=== PATIENT | male | born 1960 | race Caucasian/White ===

== ENCOUNTER 2018-11-30 08:42 | Emergency (ER) | payer MEDICARE, OTHER ==
--- NOTE | 2018-11-30 09:07 | EDM.PDOC ---
ED HPI GENERAL MEDICAL PROBLEM - General Chief Complaint: Diabetic Complaint Stated Complaint: DIABETIC,NEED INSULIN Time Seen by Provider: 11/30/18 09:05 Source of Information: Reports: Patient History Limitations: Reports: No Limitations - History of Present Illness INITIAL COMMENTS - FREE TEXT/NARRATIVE: 58-year-old male whom is from [place] is traveling and he forgot his insulin dosage or insulin-dependent home. he is on Soliliqua --insulin-dependent 3 units once daily. Essentially comes to the ED seeking medication. Patient has underlying bipolar affective disorder. He is controlled with ziprasidone 80 mg twice a day. Patient has metabolic syndrome with elevated cholesterol and hypertension and development of diabetes since 2013. Onset: Other (Has been diabetic since 2013. The use of the insulin glargine pen is normal for him.) Duration: Chronic Quality: Reports: Other Severity: Moderate (Forgot his insulin at home.) Improves with: Reports: None Worsens with: Reports: None Context: Reports: Other. 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 (see below) (None.) - Related Data Allergies Allergy/AdvReac Type Severity Reaction Status Date / Time No Known Allergies Allergy Verified 11/30/18 09:04 Home Meds: Home Meds Empagliflozin [Jardiance] 10 mg PO DAILY 11/30/18 [History] Insulin Glargine/Lixisenatide [Soliqua 100 Unit-33 Mcg/ml Pen] 3 ml SQ DAILY [History] Insulin Glargine/Lixisenatide [Soliqua 100 Unit-33 Mcg/ml Pen] 3 units SQ DAILY #1 insuln.pen 11/30/18 [Rx] Lisinopril [Prinivil] 10 mg PO DAILY 11/30/18 [History] OXcarbazepine [Trileptal] 150 mg PO BID 11/30/18 [History] Ziprasidone HCl 80 mg PO BID 11/30/18 [History] amLODIPine [Norvasc] 5 mg PO DAILY 11/30/18 [History] atorvaSTATin [Lipitor] 10 mg PO DAILY 11/30/18 [History] cloNIDine [Catapres] 0.1 mg PO DAILY 11/30/18 [History] metFORMIN [Glucophage XR] 1,000 mg PO BIDMEALS 11/30/18 [History] Past Medical History Cardiovascular History: Reports: High Cholesterol, Hypertension Psychiatric History: Reports: Anxiety, Bipolar (Controlled with Cipro wasn't on 80 mg twice a day and Trileptal daily) Endocrine/Metabolic History: Reports: Diabetes, Type II (Controlled with insulin and Jardiance.) Social & Family History - Tobacco Use Smoking Status *Q: Current Every Day Smoker Tobacco Use Within Last Twelve Months: Cigarettes Years of Tobacco use: 1 Packs/Tins Daily: 30 - Recreational Drug Use Recreational Drug Use: No ED ROS GENERAL - Review of Systems Review Of Systems: See Below Constitutional: Reports: Malaise, Weakness, Fatigue. Denies: Fever, Chills, Decreased Appetite HEENT: Reports: Glasses Respiratory: Reports: Shortness of Breath, Wheezing (Occasional wheezing) Cardiovascular: Reports: Blood Pressure Problem Endocrine: Reports: Fatigue GI/Abdominal: Reports: No Symptoms : Reports: Frequency, Other (Nocturia 3) Musculoskeletal: Reports: Joint Pain Skin: Reports: No Symptoms (Low back knees and hips at times) Neurological: Reports: No Symptoms Psychiatric: Reports: Other (Bipolar affective disorder currently well controlled on current medications.) Hematologic/Lymphatic: Reports: No Symptoms Immunologic: Reports: No Symptoms ED EXAM GENERAL NO PERIP PULSE - Physical Exam Exam: See Below Exam Limited By: No Limitations General Appearance: Alert, WD/WN, Mild Distress, Other (Patient is speaking faster than normal due to bipolar affective disorder with hypomania like activity.) Eye Exam: Bilateral Eye: Normal Inspection Throat/Mouth: Normal Lips, Other Head: Atraumatic, Normocephalic Neck: Normal Inspection, Supple, Non-Tender, Full Range of Motion. No: Lymphadenopathy (L), Lymphadenopathy (R) Respiratory/Chest: No Respiratory Distress, Lungs Clear, Normal Breath Sounds, No Accessory Muscle Use, Chest Non-Tender Cardiovascular: Normal Peripheral Pulses, Regular Rate, Rhythm, No Edema, No Murmur, No Rub Extremities: Normal Inspection, Normal Range of Motion, Non-Tender Neurological: Alert, Oriented, CN II-XII Intact, Normal Cognition Psychiatric: Anxious, Other Skin Exam: Warm, Dry, Intact, Normal Color, No Rash Course - Vital Signs Last Recorded V/S: Last Vital Signs Temp 36.6 C 11/30/18 08:51 Pulse 81 11/30/18 08:51 Resp 16 10/15/19 08:51 BP 168/96 H 11/30/18 08:51 Pulse Ox 96 11/30/18 08:51 - Radiology Interpretation Free Text/Narrative:: 58-year-old male presents the ED simply because he forgot his insulin at home in [place]. Is currently traveling away from home and will be away from home for the next few days. Is currently on insulin glargine insulin pen called Soliqua. Is currently using 30 units once daily. I will refill his insulin pen for him. He may find this very expensive. 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 A new pain was prescribed for you. Continue current dosing of 3 units daily.
== END 2018-11-30 09:13 | disposition home or self-care (01) ==
LOC: JD.ED 08:42
DX: E11.9 Type 2 diabetes mellitus without complications (principal); Z79.4 Long term (current) use of insulin; I10 Essential (primary) hypertension; E78.00 Pure hypercholesterolemia, unspecified; F31.9 Bipolar disorder, unspecified; F17.210 Nicotine dependence, cigarettes, uncomplicated; Z79.899 Other long term (current) drug therapy
CPT/HCPCS: 99281; 99283